=== PATIENT | male | born 1945 | race Caucasian/White ===

== ENCOUNTER → 2024-03-30 09:26 | Outpatient (REF) | payer MEDICARE, BC, SELFPAY | LOC: MRI 3T 09:26 | PROVIDERS: ATTENDING PHYSICIAN Physical Medicine & Rehabilitation; FAMILY PHYSICIAN Internal Medicine | DX: M54.14 Radiculopathy, thoracic region (principal) | CPT/HCPCS: 72146 ==

== ENCOUNTER → 2024-11-29 19:51 | Outpatient (REF) | payer MEDICARE, BC, SELFPAY | LOC: MRI 19:51 | PROVIDERS: ATTENDING PHYSICIAN Internal Medicine Rheumatology; FAMILY PHYSICIAN Internal Medicine | DX: M25.512 Pain in left shoulder (principal) | CPT/HCPCS: 73221 ==